=== PATIENT | male | born 1965 | race Caucasian/White ===

== ENCOUNTER 2016-05-08 09:46 | Day surgery (SDC) | payer OTHER ==
[2016-05-08] MEDS ORDERED: NS 1,000 ML IV ONE (09:50)
[2016-05-08] MEDS ORDERED: diphenhydrAMINE 25 MG CAP PO ONE ×2 (09:50→10:35)
[2016-05-08] MEDS ORDERED: DIAZEPAM 5 MG TAB PO ONE (09:50)
[2016-05-08] MEDS ORDERED: ASPIRIN EC 325 MG TAB PO ONE ×2 (09:50→10:35)
[2016-05-08] MEDS ORDERED: FAMOTIDINE 20 MG TAB PO ONE (09:50)
--- NOTE | 2016-05-08 10:16 | CPEKG ---
Heart Rate: 81 RR Interval: 741 P-R Interval: 152 QRSD Interval: 100 QT Interval: 372 QTC Interval: 432 P [place]: 75 QRS [place]: 69 T Wave [place]: 64 EKG Severity - NORMAL ECG - EKG Impression: SINUS RHYTHM Electronically Signed By: Neel Haile 08-May-2016 13:07:08
[2016-05-08 10:33] LABS: % IMMATURE GRANULYOCYTES 0.4 % (0.0-1.1); ABSOLUTE IMMATURE GRANULOCYTES 0.02 10^3/uL (0.00-0.10); ADD DIFF? NO; ADD MORPH? NO; ADD SCAN? NO; ATYPICAL LYMPHOCYTE FLAG 20 (0-99); FRAGMENT RBC FLAG 0 (0-99); HEMATOCRIT 43.4 % (40.0-51.0); LEFT SHIFT FLG 0 (0-99); LIPEMIA HEMOLYSIS FLAG 90 (0-99); MEAN CELL HEMOGLOBIN 29.7 pg (27.9-34.1); MEAN CELL HEMOGLOBIN CONCENTR. 34.6 g/dL (32.4-36.7); MEAN CELL VOLUME 85.9 fL (81.5-99.8); MEAN PLATELET VOLUME 9.8 fL (8.7-11.7); PLATELET CLUMPS FLAG 0 (0-99); PLATELET COUNT 219 10^3/uL (150-400); RED BLOOD CELL COUNT 5.05 10^6/uL (4.40-6.38); RED CELL DISTRIBUTION WIDTH 12.5 % (11.5-15.2)
[2016-05-08] MEDS ORDERED: FAMOTIDINE 20 MG TAB ONE (10:35)
[2016-05-08] MEDS ORDERED: DIAZEPAM 5 MG TAB ONE (10:36)
[2016-05-08 10:42] LABS: INR 0.93 (0.83-1.16); PROTIME(PATIENT) 12.4 SEC (12.0-15.0)
[2016-05-08] MEDS ORDERED: LIDOCAINE 1% 30 ML SDV ONE (10:46)
[2016-05-08] MEDS ORDERED: VERAPAMIL 5 MG/2 ML VIAL ONE (10:46)
[2016-05-08] MEDS ORDERED: MIDAZOLAM 2 MG/2 ML VIAL ONE ×2 (10:46→11:56)
[2016-05-08] MEDS ORDERED: HEPARIN 10,000 UNIT/10 ML MDV ONE (10:46)
[2016-05-08] MEDS ORDERED: fentaNYL 100 MCG/2 ML INJ ONE ×2 (10:46→11:56)
[2016-05-08] MEDS ORDERED: IOPAMIDOL (ISOVUE 370) 100 ML BTL IV ONE (10:47)
[2016-05-08 10:56] LABS: ANION GAP 12 mEq/L (8-16); CALCIUM 9.5 mg/dL (8.5-10.4); CARBON DIOXIDE 23 mEq/l (22-31); CHLORIDE 107 mEq/L (97-110); CHOLESTEROL 135 mg/dL (140-220); CHOLESTEROL/HDL RATIO 2.65 RATIO (1.00-4.97); CREATININE 0.8 mg/dL (0.7-1.3); GLOMERULAR FILTRATION RATE > 60; GLUCOSE 104 mg/dL (70-100); HIGH DENSITY LIPOPROTEIN 51 mg/dL (40-65); LDL/HDL RATIO 1.43 RATIO (1.00-3.64); LOW DENSITY LIPOPROTEIN 73 mg/dL (80-100); MAGNESIUM 2.2 mg/dL (1.6-2.3); NON-HIGH DENSITY LIPOPROTEIN 84 mg/dL (90-129); POTASSIUM 4.5 mEq/L (3.5-5.2); SODIUM 142 mEq/L (134-144); TRIGLYCERIDE 56 mg/dL (40-150); VERY LOW DENSITY LIPOPROTEINS 11 mg/dL (8-25)
[2016-05-08] MEDS ORDERED: ACETAMINOPHEN 325 MG TAB PO ONE (13:00)
--- NOTE | 2016-05-08 13:14 | ECHO ---
[id number] + + [address] : : [place] [address] : : [phone] + + Adult Echocardiographic Report + -------+ :Name: AGUEDA SHEN SStudy Date: 05/08/2016 10:30 AM : : Hospital Admission Number: [id number] Locati on: [facility]: :: 1965 Gender: Male Height: 65 in : :Age: 50 yrs Race: WH Weight: 155 lb : :Reason For Study: Eval mitral regurgitation : : BSA: 1.8 meter s2 : + -------+ MMode/2D Measurements \T\ Calculations IVSd: 0.82 cm LVIDd: 5.0 cm FS: 21.8 % MV Diam: 3.0 cm LVPWd: 0.84 cm LVIDs: 3.9 cm EDV(Teich): 119.2 ml ESV(Teich): 66.9 ml EF(Teich): 43.8 % Ao root diam: LVOT diam: 2.2 cmLVLd ap4: 8.7 cm SV(MOD-sp4): 3.6 cm LVOT area: EDV(MOD-sp4): 31.0 ml LA dimension: 3.8 cm2 55.0 ml 3.1 cm LVLs ap4: 7.2 cm ESV(MOD-sp4): 24.0 ml EF(MOD-sp4): 56.4 % Normal Measurement Values: + + :LVIDd (3.5-5.7cm) IVSd (0.6-1.1cm) LVPWd (0.6-1.1cm) Aortic Root (2.0-3.7cm)Left Atrium (1.5-4.0cm): :LV Vol(d) (76-115ml) LV Vol(s) (29-48ml) Ejec Fraction (50-65%)PV Paulie (0.6- 1.2m/s) TV Paulie (0.4-1.0m/s) : :MV E Paulie (0.8-1.0m/s)MV A Paulie (0.3-1.0m/s)LVOT Paulie (0.7-1.2m/s) Asc Ao Paulie ( 0.9-1.8m/s) : + + Doppler Measurements \T\ Calculations MV V2 max: Ao mean PG: LV V1 mean PG: MR max paulie: 101.8 cm/sec 2.4 mmHg 1.5 mmHg 589.8 cm/sec MV max P.1 mmHg Ao V2 mean: LV V1 mean: MR max PG: MV V2 mean: 72.3 cm/sec 56.5 cm/sec 139.2 mmHg 65.7 cm/sec Ao V2 VTI: 21.4 cm LV V1 VTI: 15.7 cm MV mean P.9 mmHgAVA(I,D): 2.8 cm2 MV V2 VTI: 31.9 cm MV area (1 diam): 7.2 cm2 MVA(VTI): 1.9 cm2 MV Flow area(1diam): 7.2 cm2 MR(RF 1 diam): SV(MV 1 diam): RF(MV,Ao)(1 diam): 14.3 % 228.4 ml 0.03 SI(MV 1 diam): RF(MV,LVOT) 128.7 ml/m2 (1diam): 0.74 SV(LVOT): 60.3 ml Left Ventricle The left ventricle is normal in size. There is normal left ventricular wall thickness. Left ventricular systolic function is normal. Ejection Fraction = 55-60%. LV basal inferoseptal and basal inferior olson are akinetic. All remaining LV segments have normal motion. Right Ventricle The right ventricle is normal in size and function. Atria The left atrial size is normal. Right atrial size is normal. The interatrial septum is intact with no evidence for an atrial septal defect. Mitral Valve Prolapse of the posterior mitral leaflet(s). There is no mitral valve stenosis. There is moderate to severe mitral regurgitation. Tricuspid Valve Normal tricuspid valve. There is trace tricuspid regurgitation. Aortic Valve The aortic valve is trileaflet. The aortic valve opens well. There is no aortic stenosis. There is no aortic insufficiency. Pulmonic Valve The pulmonic valve is normal in structure and function. There is no pulmonic valvular regurgitation. Great Vessels The aortic root is normal size. Pericardium/Pleural There is no pericardial effusion. Conclusion A complete two-dimensional transthoracic echocardiogram was performed (2D, M-mode, Doppler and color flow Doppler). Left ventricular systolic function is normal. Ejection Fraction = 55 to 60%. LV basal inferoseptal and basal inferior olson are akinetic. All remaining LV segments have normal motion. Prolapse of the posterior mitral leaflet. There is moderate to severe mitral regurgitation. Other valves with normal appearance. There is trace tricuspid regurgitation. Final Reading Physician: Bryce Duggan signed on 05/08/2016 01:12 PM Ordering Physician: Cristopher Madsen Performed By: Cara Ocasio RDCS
--- NOTE | 2016-05-08 13:51 | PDDXCAT ---
Diagnostic Cath Note - . Date: 05/08/16 Utilities Service Investigator: Cale Indication: CCC Class III and IV angina on medical treatment - Procedure Access: right wrist Procedure: left heart catheterization, coronary angiography, left ventriculogram - Materials Left Heart Cath size: 5F Left Heart Cath materials: other (TIG and Pigtail) - Findings-Left Heart Catheterization LM: Normal. LAD: Mid-LAD 60%; o/w mild irregularities; Diagonal-1 with tandem 60% and 70-80 % proximal lesions. LCX: Proximal stented segment has 80% restenosis; o/w mild irregularities. RCA: Proximal 50 to 60%; mid to distal vessel has diffuse disease and ectatic changes without high grade stenoses. EDP: 27 mmHg LVEF: 55 to 60% Wall motion: Mild inferobasilar hypokinesis. Estimated blood loss: <50ml Closure method: TR Band Assessment: 1) Preserved LV systolic function. 2) Multivessel CAD as described above. Plan: Referral to CT surgery.
== END 2016-05-08 16:26 | disposition home or self-care (01) ==
LOC: FCATH 09:46
PROVIDERS: ATTEND Internal Medicine Interventional Cardiology
PROC: B2111ZZ Fluoroscopy of Multiple Coronary Arteries using Low Osmolar Contrast (ICD-10-PCS; principal; 2016-05-08)
PROC: B246ZZZ Ultrasonography of Right and Left Heart (ICD-10-PCS; principal; 2016-05-08)
PROC: B2151ZZ Fluoroscopy of Left Heart using Low Osmolar Contrast (ICD-10-PCS; principal; 2016-05-08)
PROC: 4A023N7 Measurement of Cardiac Sampling and Pressure, Left Heart, Percutaneous Approach (ICD-10-PCS; principal; 2016-05-08)
DX: I25.119 Atherosclerotic heart disease of native coronary artery with unspecified angina pectoris (principal); T82.855A Stenosis of coronary artery stent, initial encounter; I34.0 Nonrheumatic mitral (valve) insufficiency; R53.83 Other fatigue; R06.09 Other forms of dyspnea; E78.5 Hyperlipidemia, unspecified; I25.2 Old myocardial infarction
CPT/HCPCS: 93005; 93306; 93458; C1769; J1644; J2250; J3010; Q9967

== ENCOUNTER 2016-06-04 07:25 | Inpatient (IN) | payer BC, OTHER ==
[2016-06-01 15:22] LABS: HEMOGLOBIN A1C 5.4 % (4.0-6.0)
[~2016-06-04 07:25] MED LIST: ADENOSINE 6 MG/2 ML VIAL ONE; ALBUMIN 5% 250 ML BOTTLE IV ONE; AMINOCAPROIC ACID 5 GM/20 ML VIAL IV ONE; AMINOCAPROIC ACID 5 GM/20 ML VIAL ONE; AMIODARONE HCL 150 MG/3 ML VIAL ONE; CALCIUM CHLORIDE 1 GM/10 ML INJ ONE; CITRATE DEXTROSE SOLN 500 ML BAG MISC ONE; CITRATE DEXTROSE SOLN 500 ML BAG ONE; DOPamine/DEXTROSE/250 ML BAG IV ONE; HEPARIN 10,000 UNIT/10 ML MDV ONE; INSULIN REGULAR HUMAN 100 UNIT in NS 100 ML IV ONE; LIDOCAINE 1% 5 ML SDV ID PRN; LIDOCAINE 2% 100 MG/5 ML SYR ONE; MAGNESIUM SULFATE 1 GM/2 ML VIAL ONE; MANNITOL 25% 12.5 GM/50 ML VIAL IV ONE; MILRINONE/DEXTROSE/100 ML BAG IV ONE; MUPIROCIN 2% 22 GM OINT NS ONE; NA BICARBONATE 50 MEQ/50 ML VIAL ONE; NOREPINEPHRINE BITARTRATE 16 MG in NS 250 ML IV ONE; NS 1,000 ML IV ONE; PHENYLEPHRINE HCL 50 MG in NS 250 ML IV ONE; POTASSIUM Cl (KCl) 20 MEQ/50 ML BAG IV ONE; PROTAMINE SULFATE 50 MG/5 ML VIAL IVP ONE; SODIUM BICARBONATE 20 MEQ, LIDOCAINE 1% 10 ML in NORMOSOL-R 1,000 ML MISC ONE; VERAPAMIL 5 MG, NITROGLYCERIN 2.5 MG, HEPARIN 500 UNIT, SODIUM BICARBONATE 0.2 MEQ in L... MISC ONE; ceFAZolin 1 GM VIAL ONE; ceFAZolin 2 GM/DEXTROSE 100 ML IV ONE; methylPREDNISolone SOD SUCC 1 GM/8 ML VIAL ONE; niCARdipine/NACL 200 ML IV ONE; niCARdipine/NACL/200 ML BAG IV ONE
[2016-06-04] MEDS ORDERED: PAPAVERINE HCL 60 MG/2 ML SDV ONE (07:50)
[2016-06-04] MEDS ORDERED: MINERAL OIL 10 ML VIAL TP ONE (07:50)
[2016-06-04] MEDS ORDERED: VERAPAMIL 5 MG/2 ML VIAL ONE (07:51)
[2016-06-04] MEDS ORDERED: PHENYLEPHRINE 10 MG/ML SDV ONE ×2 (07:58)
[2016-06-04] MEDS ORDERED: ROCURONIUM 100 MG/10 ML VIAL ONE (07:58)
[2016-06-04] MEDS ORDERED: LIDOCAINE 2% 5 ML SDV ONE (07:58)
[2016-06-04] MEDS ORDERED: PROPOFOL 200 MG/20 ML VIAL ONE (08:05)
[2016-06-04] MEDS ORDERED: fentaNYL 250 MCG/5 ML INJ ONE ×3 (08:05→12:57)
[2016-06-04] MEDS ORDERED: MIDAZOLAM 2 MG/2 ML VIAL ONE ×2 (08:37→14:43)
[2016-06-04] MEDS ORDERED: ESMOLOL HCL 100 MG/10 ML VIAL IV ONE (12:57)
[2016-06-04] MEDS ORDERED: MAGNESIUM SULF 2 GM/WATER 50 ML BAG IV ONE (13:48)
[2016-06-04] MEDS ORDERED: SUGAMMADEX SODIUM 200 MG/2 ML VIAL IVP ONE (14:05)
[2016-06-04] MEDS ORDERED: MAGNESIUM SULF 2 GM/WATER 50 ML IV ONE (14:14)
[2016-06-04] MEDS ORDERED: PANTOPRAZOLE SODIUM 40 MG in NS 100 ML IV ONE (14:14)
[2016-06-04] MEDS ORDERED: MAGNESIUM HYDROXIDE 30 ML UDCUP PO PRN (14:14)
[2016-06-04] MEDS ORDERED: CEPACOL LOZENGE PO PRN (14:14)
[2016-06-04] MEDS ORDERED: ONDANSETRON DISINTEGRATING 4 MG TAB PO PRN (14:14)
[2016-06-04] MEDS ORDERED: BISACODYL 10 MG SUPP PR PRN (14:14)
[2016-06-04] MEDS ORDERED: ONDANSETRON 4 MG/2 ML VIAL IVP PRN (14:14)
[2016-06-04] MEDS ORDERED: POLYETHYLENE GLYCOL 3350 17 GM PKT PO PRN (14:14)
[2016-06-04] MEDS ORDERED: MEPERIDINE 25 MG/ML SYR IVP PRN (14:14)
[2016-06-04] MEDS ORDERED: METOCLOPRAMIDE 10 MG/2 ML VIAL IVP PRN (14:14)
[2016-06-04] MEDS ORDERED: LACTULOSE 20 GM/30 ML UDCUP PO PRN (14:14)
[2016-06-04] MEDS ORDERED: D50W 25 GM/50 ML SYR IVP PRN (14:14)
[2016-06-04] MEDS ORDERED: SODIUM CL NASAL 45 ML BTL EACHNARE PRN (14:14)
[2016-06-04] MEDS ORDERED: ACETAMINOPHEN 650 MG SUPP PR PRN (14:14)
[2016-06-04] MEDS ORDERED: NS 1,000 ML IV SCH (14:15)
[2016-06-04] MEDS ORDERED: INSULIN REGULAR HUMAN 100 UNIT in NS 100 ML IV SCH (14:30)
--- NOTE | 2016-06-04 14:46 | POSTOPPROG ---
Post Op Note Date of Operation: 06/04/16 Surgeon: Cristopher Loco Sales And Customer Relations Rep: Shantanu Anesthesiologist: Randolph Anesthesia: GET(General Endotracheal) Pre-op Diagnosis: ASHD, MR Procedure: comples Mitral repair #28 physio, CAB 4 Becerra-Lad, Frima-Dg, svg-Lcx, RCA, At Inf/Abcess present in the surg proc area at time of surgery?: No EBL: 100-500 Drains: Other (3 blakes)
--- NOTE | 2016-06-04 15:23 | CPEKG ---
Heart Rate: 113 RR Interval: 531 P-R Interval: 156 QRSD Interval: 112 QT Interval: 360 QTC Interval: 494 P [place]: 77 QRS [place]: 53 T Wave [place]: 79 EKG Severity - ABNORMAL ECG - EKG Impression: SINUS TACHYCARDIA EKG Impression: INCOMPLETE RIGHT BUNDLE BRANCH BLOCK EKG Impression: LOW VOLTAGE IN FRONTAL LEADS Electronically Signed By: Neel Haile 05-Jun-2016 13:00:43
[2016-06-04 15:38] LABS: CALCULATED OXYGEN SATURATION 99 % (92-95)
--- NOTE | 2016-06-04 15:40 | GCON ---
[f rep st] CONSULTATION MOLD FINISHER CONSULTATION The patient is examined postoperatively after receiving a coronary bypass graft. HISTORY OF PRESENT ILLNESS: The patient is a 50-year-old white male with a past medical history of coronary artery disease, mitral regurgitation. He has had coronary artery stents, hyperlipidemia, a nd myocardial infarction. He is examined postoperatively after receiving a coronary bypass graft. Patient is currently sedated and was recently reintubated. All history is gleaned from the medical record. Over the last year, apparently he has been having worsening breathlessness, dizziness, and fatigue. PAST MEDICAL HISTORY: Significant for coronary artery disease, myocardial infarction, hypercholeste rolemia. PAST SURGICAL HISTORY: Coronary artery stent. ALLERGIES: Penicillin. PHYSICAL EXAM: VITAL SIGNS: Blood pressure is 112/61. Pulse is 103. Respirations 16. He is afeb rile. Oxygen saturation 100% on mechanical ventilation. GENERAL: He is a well-developed, well-nou rished 50-year-old white male who is resting comfortably on mechanical ventilation. HEENT: Eyes: SUASN. EOMI. Throat: Endotracheal tube is in good position. NECK: Supple. No cervical adenopath y. CHEST: Sternal wound is present. HEART: Regular rate and rhythm with a 2/6 systolic murmur at the left sternal border without radiation. LUNGS: Diminished breath sounds but no wheeze. ABDOME N: Soft, nontender. Bowel sounds are present. EXTREMITIES: No clubbing, cyanosis, or edema. LABORATORY STUDIES: Hemoglobin A1c is 5.4. All other labs are currently pending. IMPRESSION: 1. Coronary artery disease. 2. Status post coronary artery bypass graft. 3. Acute respiratory failure. 4. Hyperlipidemia. 5. Mitral regurgitation. RECOMMENDATIONS: 1. Wean from mechanical ventilation as tolerated. 2. DVT and PE prophylaxis. Holding anticoagulation for now. 3. Stress ulcer prophylaxis. 4. Adequate pain control. 5. Early ambulation. /[id number]/MODL
[2016-06-04] MEDS: ALBUMIN 5% 250 ML IV PRN ×2 (15:41→18:40)
[2016-06-04] MEDS ORDERED: VECURONIUM BROMIDE 10 MG VIAL ONE (15:49)
[2016-06-04] MEDS ORDERED: niCARdipine/NACL/200 ML BAG IV ONE (15:49)
[2016-06-04] MEDS: POTASSIUM Cl (KCl) 50 ML IV PRN ×2 (15:49→16:27)
--- NOTE | 2016-06-04 15:55 | GOP ---
[f rep st] OPERATIVE REPORT DATE OF OPERATION: 06/04/2016 SURGEON: Cristopher Loco DO MAT MAKER: Lesley Fournier, PAC. ANESTHESIOLOGIST: Theo Dickson MD. 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 POSTOPERATIVE DIAGNOSIS: Arteriosclerotic heart disease and severe mitral insufficiency with myxoma tous valve degeneration. PROCEDURE PERFORMED: 1. Coronary bypass grafting x4, with left internal mammary artery to left anterior descending, free right internal mammary artery to the diagonal with a proximal anastomosis brought off the eagle of t he vein graft to the circumflex. 2. Vein graft to the posterolateral circumflex. 3. Saphenous vein graft to the right coronary artery. 4. Complex mitral valve repair with P2 resection and valvuloplasty, reduction of A3 P3 commissure, and a #28 Physio annuloplasty ring. 5. AtriClip occlusion of left atrial appendage. 6. Endoscopic vein harvest. FINDINGS: The patient was noted to have severe 3-vessel disease, preserved LV function with severe mitral insufficiency secondary to myxomatous valve degeneration. DESCRIPTION OF PROCEDURE: He was consented for surgery, brought to the operating room, intubated. Monitoring lines were placed. He was prepped and draped in sterile classical manner. Left greater saphenous was harvested endoscopically by Lesley Fournier, who first assisted throughout the procedure, whi le simultaneous bilateral mammaries were harvested. The right internal mammary was small, but had b risk flow, and I did not believe it would be long enough to reach a distal circumflex vessel through the transverse sinus safely, due to multiple stents within that vessel. For that reason, it was ta cammie as a free graft and utilized as such. The patient was then heparinized, cannulated. Bypass was begun. A cardioplegic arrest was obtained with antegrade cardioplegia, retrograde cardioplegia, to pical hypothermia, and systemic cooling. Initially, all distal grafting was performed with a vein g raft to the circumflex, mammary to the LAD and the diagonal with a free right internal mammary broug ht off the eagle of the vein graft to the circumflex and a vein graft to the right coronary artery. I then proceeded with exposing the mitral valve through the right superior pulmonary vein. AtriClip was applied to the left atrial appendage. Exposing the mitral valve, it was a small valve with fib roelastic deficiency. There was elongation of the P2 and some annular dilatation. Annuloplasty sut ures were placed. Distention of the ventricle revealed prolapse of P2 but also A3 and P3. I did a triangular resection of P2, approximating it with 6-0 [place]ce. Distention of the ventricle reveale d some persistent annular regurgitation. By securing it with a 28 annuloplasty ring, that regurgita tion was eliminated. I did close the cleft between P2 and P3, and was satisfied. I then closed the left atrium after de-airing the patient in Trendelenburg, removed the crossclamp, restoring normal sinus rhythm. He was weaned from bypass without difficulty. Evaluation of the echo revealed some p ersistent 1 to 2+ mitral insufficiency at the lateral commissure. I then re-arrested the heart, re- opened the left atrium, and did a "magic stitch" vertical application to the commissure at A3 P3. D istention of the ventricle revealed no prolapse, regurgitation or any stenosis. I then re-closed th e atrium, removed the crossclamp, de-aired the patient again in the standard fashion, and weaned him from bypass. Echo revealed trace to none insufficiency with good coaptation and good ventricular f unction. The heparin was reversed with protamine. The cannula was removed and oversewn. 2 ventric ular pacing wires were placed. 2 pleural and 1 mediastinal drain were placed. The thymic fat and p ericardium were closed. Chest was closed in standard fashion. Patient was returned to ICU in stabl e condition. /[id number]/MODL
--- NOTE | 2016-06-04 16:04 | GPN ---
[f rep st] PROCEDURE NOTE PROCEDURE: Intubation. INDICATION: Respiratory failure. DESCRIPTION OF PROCEDURE: Via GlideScope, patient was intubated with a #7.5 endotracheal tube and t aped in at 24 cm at the lip. Tracheal position was confirmed via capnograph. Patient tolerated the procedure well. There were no apparent complications. Portable chest x-ray has been called for. /[id number]/MODL
[2016-06-04] MEDS: fentaNYL 100 MCG/2 ML INJ IVP PRN (16:30)
[2016-06-04] MEDS: SENNOSIDES/DOCUSATE SODIUM TAB PO SCH (20:14)
[2016-06-04] MEDS: MUPIROCIN 2% 22 GM OINT NS SCH (20:53)
[2016-06-04] MEDS: ceFAZolin 2 GM/DEXTROSE 100 ML IV SCH (21:34)
[2016-06-04 23:11] LABS: CALCULATED OXYGEN SATURATION 99 % (92-95)
[2016-06-05] MEDS: fentaNYL 100 MCG/2 ML INJ IVP PRN ×4 (00:09→05:17)
[2016-06-05 03:53] LABS: HEMOGLOBIN 10.6 g/dL (13.7-17.5); MEAN CELL HEMOGLOBIN CONCENTR. 34.2 g/dL (32.4-36.7); MEAN CELL VOLUME 87.8 fL (81.5-99.8); RED BLOOD CELL COUNT 3.53 10^6/uL (4.40-6.38); RED CELL DISTRIBUTION WIDTH 13.2 % (11.5-15.2)
[2016-06-05 05:27] LABS: INR 1.27 (0.83-1.16); PROTIME(PATIENT) 15.9 SEC (12.0-15.0)
[2016-06-05] MEDS: HYDROCODONE/APAP 5/325 TAB PO PRN ×4 (05:27→19:27)
[2016-06-05] MEDS: ceFAZolin 2 GM/DEXTROSE 100 ML IV SCH ×4 (05:30→21:02)
[2016-06-05 05:33] LABS: ANION GAP 7 mEq/L (8-16); CALCIUM 8.5 mg/dL (8.5-10.4); CARBON DIOXIDE 23 mEq/l (22-31); CHLORIDE 113 mEq/L (97-110); CREATININE 0.6 mg/dL (0.7-1.3); GLOMERULAR FILTRATION RATE > 60; GLUCOSE 77 mg/dL (70-100); POTASSIUM 4.2 mEq/L (3.5-5.2); SODIUM 143 mEq/L (134-144)
[2016-06-05 05:54] LABS: % IMMATURE GRANULYOCYTES 0.5 % (0.0-1.1); ABSOLUTE IMMATURE GRANULOCYTES 0.04 10^3/uL (0.00-0.10); ADD DIFF? NO; ADD MORPH? NO; ADD SCAN? NO; ATYPICAL LYMPHOCYTE FLAG 0 (0-99); FRAGMENT RBC FLAG 0 (0-99); HEMATOCRIT 31.6 % (40.0-51.0); HEMOGLOBIN 10.6 g/dL (13.7-17.5); LEFT SHIFT FLG 40 (0-99); LIPEMIA HEMOLYSIS FLAG 80 (0-99); MEAN CELL HEMOGLOBIN 29.2 pg (27.9-34.1); MEAN CELL HEMOGLOBIN CONCENTR. 33.5 g/dL (32.4-36.7); MEAN CELL VOLUME 87.1 fL (81.5-99.8); MEAN PLATELET VOLUME 11.2 fL (8.7-11.7); PLATELET CLUMPS FLAG 10 (0-99); PLATELET COUNT 96 10^3/uL (150-400); RED BLOOD CELL COUNT 3.63 10^6/uL (4.40-6.38); RED CELL DISTRIBUTION WIDTH 13.2 % (11.5-15.2)
[2016-06-05] MEDS ORDERED: HEPARIN 5,000 UNIT/0.5 ML SYR SC SCH (06:00)
--- NOTE | 2016-06-05 08:20 | SOAPPROG ---
SOAP Progress Note Assessment/Plan: Assessment: POD#1 CABG x 4 (RODRIGUEZ-LAD, FRIMA-D2, SV-PLC, SV-RCA); complex MV rpr with P2 rsxn, A3-P3 reduction, and 28mm ring annuloplasty; prophylactic AtriClip LLAA; EVH left thigh Sx severe CAD w preserved LV systolic fx - s/p CABG with 2 arterial grafts. Extubated in the OR but transiently reintubated for agitation and acidosis. Successfully extubated last noc without further resp compromise. Stable hemodynamics without pressor support, backup pacing, blood, blood products. Minimal volume overload. Secondary prevention with ASA, BB uptitrated as tolerated, and statin when eating well. Myxomatous MR - Bileaflet involvement amenable to complex repair. Antithrombotic prophylaxis with Coumadin x 3 mo. Target INR 2-3. Acute expected blood loss anemia - Stable. No blood products transfused. VTE prophylaxis w coumadin. Plan: Routine POD#1 orders re lines, drains, wires, orals and mobility. Add duragesic patch 50mcg. Start metoprolol 12.5 mg BID. Start coumadin. 2.5 mg today. Tx to PCU. 06/05/16 08:15 Subjective: Ok at rest. Suboptimal analgesia with mvmt. Objective: Vital Signs Temp Pulse Resp BP Pulse Ox 38.0 C 93 12 121/67 H 97 06/05/16 07:00 06/05/16 08:00 06/05/16 08:00 06/05/16 08:00 06/05/16 08:00 Laboratory Results 06/05/16 03:25 06/05/16 05:10 06/04/16 06/05/16 06/06/16 05:59 05:59 05:59 Intake Total 1827 Output Total 2185 180 Balance -358 -180 PT 15.9 SEC (12.0-15.0) H 06/05/16 05:10 INR 1.27 (0.83-1.16) H 06/05/16 05:[address], BP sl elev - likely secondary to pain. Minimal suppl O2 req. CXR-> No PTX, no undrained effusions, no pulm vasc congestion, abundant GI gas. Balanced I/Os. Labs ok. Physical Exam - Physical Exam General Appearance: alert, no apparent distress Respiratory: crackles (+ tube noise), other (Blakes x 3 y-d to pleurovac, serosang drainage, no tidal, no AL) Cardiac/Chest: regular rate, rhythm, tachycardia Abdomen: normal bowel sounds, non-tender, soft Skin: warm/dry Extremities: other (no visible edema) ICD10 Worksheet Patient Problems: Problems Problem Status Onset Acute blood loss anemia Acute Coronary stent restenosis Acute Crescendo angina Acute S/P CABG x 4 Acute ~06/04/16 S/P mitral valve repair Acute ~06/04/16 CAD, multiple vessel Chronic Myxomatous mitral valve regurgitation Chronic
[2016-06-05] MEDS ORDERED: fentaNYL 50 MCG PATCH TD ONE (08:30)
--- NOTE | 2016-06-05 08:51 | PDINTPN ---
Nutritionist Progress Note Assessment/Plan: Assessment/Plan: * Status post CABG with mitral valve repair-stable * Respiratory-stable off mechanical ventilation -continue aggressive pulmonary toilet * Coronary artery disease * Pain-fairly well controlled * Anemia * VTE prophylaxis-Coumadin to start today * Stress ulcer prophylaxis * PT/OT * Out of bed to chair Subjective: Complains of pain with deep inspiration or cough. He states he is only able to take a shallow breath. Objective: Vital Signs Temp Pulse Resp BP Pulse Ox 38.0 C 93 12 121/67 H 97 06/05/16 07:00 06/05/16 08:00 06/05/16 08:00 06/05/16 08:00 06/05/16 08:00 Laboratory Results 06/05/16 03:25 06/05/16 05:10 06/04/16 06/05/16 06/06/16 05:59 05:59 05:59 Intake Total 1827 Output Total 2185 180 Balance -358 -180 PT 15.9 SEC (12.0-15.0) H 06/05/16 05:10 INR 1.27 (0.83-1.16) H 06/05/16 05:10 Physical Exam - Physical Exam General Appearance: alert, mild distress EENT: PERRL/EOMI, normal ENT inspection, pharynx normal, TMs normal Neck: non-tender, full range of motion, supple, normal inspection Respiratory: crackles (Few basilar), No respiratory distress, No stridor, No wheezing Cardiac/Chest: normal peripheral pulses, regular rate, rhythm Peripheral Pulses: 2+: carotid (R), carotid (L), femoral (R), femoral (L), dorsalis-pedis (R), dorsalis-pedis (L) Abdomen: normal bowel sounds, non-tender, soft Male Genitalia: deferred Rectal: deferred Skin: normal color, warm/dry Lymphatic: no adenopathy Neuro/Psych: no motor/sensory deficits, alert, normal mood/affect, oriented x 3 ICD10 Worksheet Patient Problems: Problems Problem Status Onset Acute blood loss anemia Acute Coronary stent restenosis Acute Crescendo angina Acute S/P CABG x 4 Acute ~06/04/16 S/P mitral valve repair Acute ~06/04/16 CAD, multiple vessel Chronic Myxomatous mitral valve regurgitation Chronic
[2016-06-05] MEDS ORDERED: ASPIRIN 81 MG CHEWABLE TAB TUBE PRN (09:00)
[2016-06-05] MEDS: SENNOSIDES/DOCUSATE SODIUM TAB PO SCH ×2 (09:07→20:59)
[2016-06-05] MEDS: METOPROLOL TARTRATE 25 MG TAB PO SCH ×2 (09:07→21:05)
[2016-06-05] MEDS: ASPIRIN 81 MG CHEWABLE TAB PO SCH (09:09)
[2016-06-05] MEDS: PANTOPRAZOLE SODIUM 40 MG TAB PO SCH (09:09)
[2016-06-05] MEDS: MUPIROCIN 2% 22 GM OINT NS SCH ×2 (09:13→21:04)
[2016-06-05] MEDS ORDERED: KETOROLAC 30 MG/1 ML SDV IVP ONE (10:48)
[2016-06-05] MEDS ORDERED: ALBUMIN 5% 250 ML IV ONE (13:10)
[2016-06-05] MEDS ORDERED: NS BOLUS 500 ML (Wide open) IV ONE (16:00)
[2016-06-05] MEDS ORDERED: WARFARIN SODIUM 2.5 MG TAB PO ONE (16:00)
[2016-06-06] MEDS: HYDROCODONE/APAP 5/325 TAB PO PRN (02:44)
[2016-06-06 03:17] LABS: ANION GAP 9 mEq/L (8-16); CALCIUM 8.6 mg/dL (8.5-10.4); CARBON DIOXIDE 24 mEq/l (22-31); CHLORIDE 103 mEq/L (97-110); CREATININE 0.8 mg/dL (0.7-1.3); GLOMERULAR FILTRATION RATE > 60; GLUCOSE 138 mg/dL (70-100); POTASSIUM 4.2 mEq/L (3.5-5.2); SODIUM 136 mEq/L (134-144)
[2016-06-06 03:30] LABS: % IMMATURE GRANULYOCYTES 0.7 % (0.0-1.1); ADD DIFF? NO; ADD MORPH? NO; ADD SCAN? NO; ATYPICAL LYMPHOCYTE FLAG 0 (0-99); FRAGMENT RBC FLAG 0 (0-99); HEMATOCRIT 30.7 % (40.0-51.0); HEMOGLOBIN 10.2 g/dL (13.7-17.5); LEFT SHIFT FLG 10 (0-99); LIPEMIA HEMOLYSIS FLAG 80 (0-99); MEAN CELL HEMOGLOBIN 29.7 pg (27.9-34.1); MEAN CELL HEMOGLOBIN CONCENTR. 33.2 g/dL (32.4-36.7); MEAN CELL VOLUME 89.5 fL (81.5-99.8); MEAN PLATELET VOLUME 11.7 fL (8.7-11.7); PLATELET CLUMPS FLAG 0 (0-99); PLATELET COUNT 95 10^3/uL (150-400); RED BLOOD CELL COUNT 3.43 10^6/uL (4.40-6.38); RED CELL DISTRIBUTION WIDTH 13.4 % (11.5-15.2)
[2016-06-06 03:35] LABS: INR 1.81 (0.83-1.16); PROTIME(PATIENT) 21.1 SEC (12.0-15.0)
[2016-06-06] MEDS: ceFAZolin 2 GM/DEXTROSE 100 ML IV SCH ×2 (06:14→14:35)
--- NOTE | 2016-06-06 07:48 | SOAPPROG ---
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 Target INR 2-3. Acute expected blood loss anemia - Stable. No blood products transfused Disposition - Home Wednesday without services Subjective: c/o of pain near CTs, denies SOB, feels like he's doing well Objective: Vital Signs Temp Pulse Resp BP Pulse Ox 36.8 C 108 H 19 125/70 H 94 06/05/16 16:00 06/06/16 05:28 06/06/16 05:28 06/06/16 05:28 06/06/16 05:28 Laboratory Results 06/06/16 02:55 06/06/16 02:55 06/05/16 06/06/16 06/07/16 05:59 05:59 05:59 Intake Total 1827 2450 Output Total 2185 1225 Balance -358 1225 PT 21.1 SEC (12.0-15.0) H 06/06/16 02:55 INR 1.81 (0.83-1.16) H 06/06/16 02:55 Physical Exam - Physical Exam General Appearance: alert, mild distress EENT: normal ENT inspection Neck: normal inspection Respiratory: respiratory distress (mild), splinting, pain on movement, No accessory muscle use, No retractions Cardiac/Chest: regular rate, rhythm Abdomen: non-tender, soft, No distended Skin: normal color, warm/dry Extremities: No pedal edema Neuro/Psych: no motor/sensory deficits, alert, normal mood/affect, oriented x 3 ICD10 Worksheet Patient Problems: Problems Problem Status Onset Acute blood loss anemia Acute Coronary stent restenosis Acute Crescendo angina Acute S/P CABG x 4 Acute ~06/04/16 S/P mitral valve repair Acute ~06/04/16 CAD, multiple vessel Chronic Myxomatous mitral valve regurgitation Chronic
[2016-06-06] MEDS: oxyCODONE IR 5 MG TAB PO PRN (08:15)
[2016-06-06] MEDS: ASPIRIN 81 MG CHEWABLE TAB PO SCH (08:18)
[2016-06-06] MEDS: MAGNESIUM OXIDE 400 MG TAB PO SCH (08:18)
[2016-06-06] MEDS: SENNOSIDES/DOCUSATE SODIUM TAB PO SCH ×2 (08:18→20:19)
[2016-06-06] MEDS: PANTOPRAZOLE SODIUM 40 MG TAB PO SCH (08:19)
[2016-06-06] MEDS: METOPROLOL TARTRATE 25 MG TAB PO SCH ×2 (08:19→21:37)
[2016-06-06] MEDS: MUPIROCIN 2% 22 GM OINT NS SCH (08:25)
[2016-06-06] MEDS: CALCIUM CARBONATE PO SCH ×2 (09:22→12:05)
[2016-06-06] MEDS: VITAMIN D3 PO SCH ×2 (09:22→12:05)
[2016-06-06] MEDS ORDERED: KETOROLAC 30 MG/1 ML SDV IVP ONE (10:04)
--- NOTE | 2016-06-06 10:32 | ECHO ---
[id number] [id number] + + [address] : : [facility] [address] : : [phone] + + Adult Echocardiographic Report + -------+ :Name: AGUEDA SHEN SStudy Date: 06/06/2016 07:40 AM : : Hospital Admission Number: [id number] Locati on: 213: :: 1965 Gender: Male Height: 65 in : :Age: 50 yrs Race: WH Weight: 154 lb : :Reason For Study: Post mitral valve repair : : BSA: 1.8 meter s2 : + -------+ Left Ventricle The left ventricle is hyperdynamic. Mitral Valve No MR visualized. An annuloplasty ring is noted in the mitral position. Pericardium/Pleural trivial pericardial effusion. Conclusion Limited 2-D echo. The study was technically limited. The left ventricle is hyperdynamic. An annuloplasty ring is noted in the mitral position. No MR visualized. trivial pericardial effusion. Final Reading Physician: Bryce Bruce signed on 06/06/2016 10:30 AM Ordering Physician: Cristopher Loco Performed By: Cara Ocasio, ARNALDO
[2016-06-06] MEDS ORDERED: NS 500 ML IV SCH (12:00)
[2016-06-06] MEDS ORDERED: WARFARIN SODIUM 2.5 MG TAB PO ONE (16:00)
[2016-06-06] MEDS ORDERED: WARFARIN SODIUM 1 MG TAB PO ONE (16:00)
[2016-06-06] MEDS: ACETAMINOPHEN 325 MG TAB PO PRN (16:22)
[2016-06-07] MEDS: ACETAMINOPHEN 325 MG TAB PO PRN (04:44)
[2016-06-07] MEDS: HYDROCODONE/APAP 5/325 TAB PO PRN (04:44)
[2016-06-07 04:53] LABS: INR 3.08 (0.83-1.16); PROTIME(PATIENT) 32.2 SEC (12.0-15.0)
--- NOTE | 2016-06-07 08:06 | SOAPPROG ---
SOAP Progress Note Assessment/Plan: POD#3 CABG x 4 (RODRIGUEZ-LAD, FRIMA-D2, SV-PLC, SV-RCA); complex MV rpr with P2 rsxn , A3-P3 reduction, and 28mm ring annuloplasty; prophylactic AtriClip LLAA; EVH left thigh Sx severe CAD w preserved LV systolic fx - s/p CABG x4 - Secondary prevention with ASA, BB uptitrated as tolerated, and statin when eating well - PT for ambulation - SCDs for DVT prophylaxis Myxomatous MR - Bileaflet involvement amenable to complex repair, no MR as per post-op ECHO - Antithrombotic prophylaxis with Coumadin x 3 mo. Target INR 2-3. Acute expected blood loss anemia - Stable. No blood products transfused Disposition - Home Wednesday without services Subjective: Feels better. Denies pain/SOB. Objective: Vital Signs Temp Pulse Resp BP Pulse Ox 37.0 C 89 16 104/70 100 06/07/16 07:35 06/07/16 07:35 06/07/16 07:35 06/07/16 07:35 06/07/16 07:35 Laboratory Results 06/06/16 02:55 06/06/16 02:55 06/06/16 06/07/16 06/08/16 05:59 05:59 05:59 Intake Total 2450 1730 Output Total 1225 1250 Balance 1225 480 PT 32.2 SEC (12.0-15.0) H D 06/07/16 04:40 INR 3.08 (0.83-1.16) H 06/07/16 04:40 Physical Exam - Physical Exam General Appearance: WD/WN, alert, no apparent distress EENT: normal ENT inspection Neck: normal inspection Respiratory: No respiratory distress Cardiac/Chest: regular rate, rhythm Abdomen: non-tender, soft, No distended Skin: normal color, warm/dry Extremities: pedal edema Neuro/Psych: no motor/sensory deficits, alert, normal mood/affect, oriented x 3 ICD10 Worksheet Patient Problems: Problems Problem Status Onset Acute blood loss anemia Acute Coronary stent restenosis Acute Crescendo angina Acute S/P CABG x 4 Acute ~06/04/16 S/P mitral valve repair Acute ~06/04/16 CAD, multiple vessel Chronic Myxomatous mitral valve regurgitation Chronic
[2016-06-07] MEDS ORDERED: KETOROLAC 30 MG/1 ML SDV IVP ONE (10:16)
[2016-06-07] MEDS: FUROSEMIDE 40 MG TAB PO SCH ×2 (10:41→15:32)
[2016-06-07] MEDS: POTASSIUM CL 20 MEQ TAB PO SCH ×2 (10:41→21:28)
[2016-06-07] MEDS: ROSUVASTATIN CALCIUM 20 MG TAB PO SCH (10:42)
[2016-06-07] MEDS: METOPROLOL TARTRATE 25 MG TAB PO SCH ×2 (10:42→21:28)
[2016-06-07] MEDS: PANTOPRAZOLE SODIUM 40 MG TAB PO SCH (10:43)
[2016-06-07] MEDS: ASPIRIN 81 MG CHEWABLE TAB PO SCH (10:43)
[2016-06-07] MEDS: OMEGA-3 FATTY ACIDS 1,000 MG CAP PO SCH (10:43)
[2016-06-07] MEDS: SENNOSIDES/DOCUSATE SODIUM TAB PO SCH ×2 (10:44→21:31)
[2016-06-07] MEDS: CALCIUM CARBONATE PO SCH (10:54)
[2016-06-07] MEDS: VITAMIN D3 PO SCH (10:54)
[2016-06-08 03:33] LABS: ANION GAP 7 mEq/L (8-16); CALCIUM 7.3 mg/dL (8.5-10.4); CARBON DIOXIDE 24 mEq/l (22-31); CHLORIDE 105 mEq/L (97-110); CREATININE 0.6 mg/dL (0.7-1.3); GLOMERULAR FILTRATION RATE > 60; GLUCOSE 106 mg/dL (70-100); POTASSIUM 3.3 mEq/L (3.5-5.2); SODIUM 136 mEq/L (134-144)
[2016-06-08 03:34] LABS: INR 2.16 (0.83-1.16); PROTIME(PATIENT) 24.3 SEC (12.0-15.0)
--- NOTE | 2016-06-08 07:02 | SOAPPROG ---
SOAP Progress Note Assessment/Plan: POD#3 CABG x 4 (RODRIGUEZ-LAD, FRIMA-D2, SV-PLC, SV-RCA); complex MV rpr with P2 rsxn , A3-P3 reduction, and 28mm ring annuloplasty; prophylactic AtriClip LLAA; EVH left thigh Sx severe CAD w preserved LV systolic fx - s/p CABG x4 - Secondary prevention with ASA, BB, and statin - PT for ambulation - SCDs/Coumadin for DVT prophylaxis Myxomatous MR - Bileaflet involvement amenable to complex repair, no MR as per post-op ECHO - Antithrombotic prophylaxis with Coumadin x 3 mo. Target INR 2-3. Acute expected blood loss anemia - Stable. No blood products transfused Disposition - Home Wednesday without services Subjective: Pain better today. Able to take deeper breaths. Objective: Vital Signs Temp Pulse Resp BP Pulse Ox 37.3 C 93 18 115/75 91 L 06/08/16 03:08 06/08/16 03:08 06/08/16 03:08 06/08/16 03:08 06/08/16 03:08 Laboratory Results 06/06/16 02:55 06/08/16 03:15 06/07/16 06/08/16 06/09/16 05:59 05:59 05:59 Intake Total 1730 920 Output Total 1250 2710 Balance 480 -1790 PT 24.3 SEC (12.0-15.0) H 06/08/16 03:15 INR 2.16 (0.83-1.16) H 06/08/16 03:15 Physical Exam - Physical Exam General Appearance: WD/WN, alert, no apparent distress EENT: normal ENT inspection Neck: normal inspection Respiratory: normal breath sounds, No respiratory distress Cardiac/Chest: regular rate, rhythm Abdomen: non-tender, soft, No distended Skin: normal color, warm/dry Extremities: pedal edema Neuro/Psych: no motor/sensory deficits, alert, normal mood/affect, oriented x 3 ICD10 Worksheet Patient Problems: Problems Problem Status Onset Acute blood loss anemia Acute Coronary stent restenosis Acute Crescendo angina Acute S/P CABG x 4 Acute ~06/04/16 S/P mitral valve repair Acute ~06/04/16 CAD, multiple vessel Chronic Myxomatous mitral valve regurgitation Chronic
[2016-06-08] MEDS ORDERED: fentaNYL 50 MCG PATCH TD ONE (07:51)
[2016-06-08] MEDS: POTASSIUM Cl (KCl) 50 ML IV SCH ×4 (08:01→18:36)
[2016-06-08] MEDS: POTASSIUM CL 20 MEQ TAB PO SCH ×2 (08:49→20:03)
[2016-06-08] MEDS: ROSUVASTATIN CALCIUM 20 MG TAB PO SCH (08:49)
[2016-06-08] MEDS: OMEGA-3 FATTY ACIDS 1,000 MG CAP PO SCH (08:50)
[2016-06-08] MEDS: FUROSEMIDE 40 MG TAB PO SCH ×2 (08:50→15:50)
[2016-06-08] MEDS: METOPROLOL TARTRATE 25 MG TAB PO SCH ×2 (08:50→20:03)
[2016-06-08] MEDS: PANTOPRAZOLE SODIUM 40 MG TAB PO SCH (08:51)
[2016-06-08] MEDS: ASPIRIN 81 MG CHEWABLE TAB PO SCH (08:51)
[2016-06-08] MEDS: SENNOSIDES/DOCUSATE SODIUM TAB PO SCH ×3 (08:52→20:02)
[2016-06-08] MEDS: ACETAMINOPHEN 325 MG TAB PO PRN ×2 (08:53→15:53)
[2016-06-08] MEDS: VITAMIN D3 PO SCH (10:26)
[2016-06-08] MEDS: CALCIUM CARBONATE PO SCH (10:26)
[2016-06-08 15:11] LABS: POTASSIUM 3.6 mEq/L (3.5-5.2)
[2016-06-08] MEDS ORDERED: WARFARIN SODIUM 2.5 MG TAB PO ONE (16:00)
[2016-06-08] MEDS ORDERED: WARFARIN SODIUM 1 MG TAB PO ONE (16:00)
[2016-06-09 06:34] LABS: INR 2.32 (0.83-1.16); PROTIME(PATIENT) 25.7 SEC (12.0-15.0)
[2016-06-09 06:43] LABS: POTASSIUM 4.4 mEq/L (3.5-5.2)
--- NOTE | 2016-06-09 08:15 | CPEKG ---
Heart Rate: 105 RR Interval: 571 P-R Interval: 124 QRSD Interval: 130 QT Interval: 372 QTC Interval: 492 P [place]: 75 QRS [place]: -1 T Wave [place]: 47 EKG Severity - ABNORMAL ECG - EKG Impression: SINUS TACHYCARDIA EKG Impression: RIGHT BUNDLE BRANCH BLOCK EKG Impression: RIGHT VENTRICULAR HYPERTROPHY Electronically Signed By: Neel Au 10-Jun-2016 08:24:25
[2016-06-09] MEDS: FUROSEMIDE 40 MG TAB PO SCH ×2 (09:00→15:28)
[2016-06-09] MEDS ORDERED: METOPROLOL TARTRATE 25 MG TAB PO SCH (09:00)
[2016-06-09] MEDS: MAGNESIUM OXIDE 400 MG TAB PO SCH (09:00)
[2016-06-09] MEDS: OMEGA-3 FATTY ACIDS 1,000 MG CAP PO SCH (09:00)
[2016-06-09] MEDS: POTASSIUM CL 20 MEQ TAB PO SCH (09:00)
[2016-06-09] MEDS: SENNOSIDES/DOCUSATE SODIUM TAB PO SCH (09:02)
[2016-06-09] MEDS: ROSUVASTATIN CALCIUM 20 MG TAB PO SCH (09:02)
[2016-06-09] MEDS: PANTOPRAZOLE SODIUM 40 MG TAB PO SCH (09:02)
[2016-06-09] MEDS: ASPIRIN 81 MG CHEWABLE TAB PO SCH (09:02)
[2016-06-09] MEDS: VITAMIN D3 PO SCH (09:03)
[2016-06-09] MEDS: CALCIUM CARBONATE PO SCH (09:03)
--- NOTE | 2016-06-09 09:04 | SOAPPROG ---
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 Target INR 2-3. Acute expected blood loss anemia - Stable. No blood products transfused Disposition - Home today without services 06/09/16 09:37 Subjective: Feels much better today. Denies SOB/CP. Objective: Vital Signs Temp Pulse Resp BP Pulse Ox 37.3 C 111 H 20 115/76 93 06/09/16 07:50 06/09/16 09:01 06/09/16 07:50 06/09/16 09:01 06/09/16 07:50 Laboratory Results 06/06/16 02:55 06/09/16 06:00 06/08/16 06/09/16 06/10/16 05:59 05:59 05:59 Intake Total 920 2095 Output Total 2710 0 Balance -1790 45 PT 25.7 SEC (12.0-15.0) H 06/09/16 06:00 INR 2.32 (0.83-1.16) H 06/09/16 06:00 Physical Exam - Physical Exam General Appearance: WD/WN, alert, no apparent distress EENT: normal ENT inspection Neck: normal inspection Respiratory: No respiratory distress Cardiac/Chest: regular rate, rhythm Abdomen: non-tender, soft, No distended Skin: normal color, warm/dry Extremities: pedal edema Neuro/Psych: no motor/sensory deficits, alert, normal mood/affect, oriented x 3 ICD10 Worksheet Patient Problems: Problems Problem Status Onset Acute blood loss anemia Acute Coronary stent restenosis Acute Crescendo angina Acute S/P CABG x 4 Acute ~06/04/16 S/P mitral valve repair Acute ~06/04/16 CAD, multiple vessel Chronic Myxomatous mitral valve regurgitation Chronic
[2016-06-09 09:19] LABS: HEMATOCRIT 25.4 % (40.0-51.0); HEMOGLOBIN 8.5 g/dL (13.7-17.5); MEAN CELL HEMOGLOBIN 29.4 pg (27.9-34.1); MEAN CELL HEMOGLOBIN CONCENTR. 33.5 g/dL (32.4-36.7); MEAN CELL VOLUME 87.9 fL (81.5-99.8); RED BLOOD CELL COUNT 2.89 10^6/uL (4.40-6.38); RED CELL DISTRIBUTION WIDTH 13.1 % (11.5-15.2)
[2016-06-09] MEDS ORDERED: FERROUS SULFATE 325 MG TAB PO SCH (10:00)
[2016-06-09 12:32] VITALS: BP 104/70; PULSE 89; RESP 19; TEMP 96.5; O2SAT 95
--- NOTE | 2016-06-09 14:18 | PDDCSUM ---
Discharge Summary Discharge Summary: ADMISSION DATE: 06/04/16 DISCHARGE DATE: 06/09/16 ADMISSION DX: 1. Severe three-vessel CAD 2. Severe mitral valve insufficiency DISCHARGE DX: 1. Severe three-vessel CAD 2. Severe mitral valve insufficiency PROCEDURES 06/04/16, Cristopher Loco: 1. CABGx4 (RODRIGUEZ-LAD, free JUDY-Diag, SVG-circ, SVG-RCA) 2. Complex MV repair with #28 Physio ring annuloplasty 3. AtriClip RAUL 4. [facility] COURSE BY PROBLEM LIST 1. Severe three-vessel CAD: s/p CABGx4 with stable post-operative course. Beta- rhonda, aspirin, and statin continued. 2. Severe mitral valve insufficiency: s/p complex repair with annuloplasty. Post -op ECHO revealed no valve insufficiency. Coumadin prescribed for 3 months with INR goal of 2-3. CONDITION Good DISPOSITION Home ACTIVITY Pt was instructed on sternal precautions, activity limitations, and which problems to call [facility] with. Please see Discharge Plan in chart for specifics. D/C MEDICATIONS 1. Aspirin [Aspirin 81mg (*)] 81 mg PO DAILY 2. Calcium Carbonate/Vitamin D3 [CALCIUM 600 + VIT D TABLET] 1 each PO DAILY 3. Herbals/Supplements -Info Only 1 ea PO DAILY 4. [place]-3 Fatty Acids [Fish Oil 1000 mg (*)] 2,000 mg PO DAILY 5. Rosuvastatin Calcium [Crestor 20mg (*)] 20 mg PO DAILY 6. Magnesium Oxide [Magnesium Oxide 400 mg (*)] 400 mg PO Q3D 7. Acetaminophen [Tylenol 325mg (*)] 325 - 650 mg PO Q4HRS PRN 8. Ferrous Sulfate [Ferrous Sulf 325 MG (*)] 325 mg PO DAILY 9. Furosemide [Lasix 40 MG (*)] 40 mg PO BID@0900,1500 10 Metoprolol Tartrate [Lopressor 25 mg (*)] 37.5 mg PO BID 11. Potassium Cl [Klor-Con 20 meq (*)] 40 meq PO BID 12. Sennosides/Docusate Sodium [Senokot-S] 1 - 2 tab PO BID 13. Warfarin Sodium 2 mg PO DAILY AT 6PM 14. oxyCODONE IR [Oxycodone Ir (*)] 5 mg PO Q4HRS PRN PENDING STUDIES/LABS 1. BMP and CXR - prior to surgical follow-up 2. INR as per arranged Coumadin clinic F/U APPOINTMENTS 1. Cristopher Loco - 06/16/16, 9:00 AM 2. Yoav Zapata - to be determined at surgical follow-up
[2016-06-09] MEDS: oxyCODONE IR 5 MG TAB PO PRN (15:59)
[2016-06-09] MEDS ORDERED: WARFARIN SODIUM 2 MG TAB PO ONE (16:00)
[2016-06-09] MEDS ORDERED: WARFARIN SODIUM 2.5 MG TAB PO ONE (16:00)
--- NOTE | 2016-06-12 12:36 | PQFORM ---
PHYSICIAN QUERY FORM Needs Your Response This query form is being sent to you to assure this patient record is coded properly. Please respond to the question below: DIPLOMATIC INTERPRETER QUESTION: Dear Dr. Loco, It is documented in Dr. Osullivan's Consult that the patient had the diagnosis of 'Acute respiratory failure.' Patient was intubated on June 04 for respiratory failure. Stated in SOAP progress note dated 06/05 'patient was re- intubated for agitation and acidosis.' After study, should the diagnosis of ' Acute respiratory failure' be included in the Discharge Summary? Yes x No Other more appropriate diagnosis Unable to determine Thank you MALIK Watson HIM/Coding Dept. [phone] INSTRUCTIONS FOR RESPONSE: Answer question by clicking on the "Edit Document" button. Move cursor to area below the stars. When complete, hit "Save." Click on the "Sign" button, then click "Sign" again. Type in your PIN and hit "Enter." MTDD
== END 2016-06-09 16:40 | disposition home or self-care (01) | DRG 219 ==
LOC: F2N 07:25 → F2W 06-05 12:55
PROVIDERS: ADMIT Thoracic Surgery (Cardiothoracic Vascular Surgery); ATTEND Thoracic Surgery (Cardiothoracic Vascular Surgery)
PROC: 02100Z9 Bypass Coronary Artery, One Artery from Left Internal Mammary, Open Approach (ICD-10-PCS; principal; 2016-06-04 08:45)
PROC: 02RG0JZ Replacement of Mitral Valve with Synthetic Substitute, Open Approach (ICD-10-PCS; principal; 2016-06-04 08:45)
PROC: 5A1221Z Performance of Cardiac Output, Continuous (ICD-10-PCS; principal; 2016-06-04 08:45)
PROC: 06BQ4ZZ Excision of Left Saphenous Vein, Percutaneous Endoscopic Approach (ICD-10-PCS; principal; 2016-06-04 08:45)
PROC: 02L70CK Occlusion of Left Atrial Appendage with Extraluminal Device, Open Approach (ICD-10-PCS; principal; 2016-06-04 08:45)
PROC: 021209W Bypass Coronary Artery, Three Arteries from Aorta with Autologous Venous Tissue, Open Approach (ICD-10-PCS; principal; 2016-06-04 08:45)
DX: I25.118 Atherosclerotic heart disease of native coronary artery with other forms of angina pectoris (principal); J96.00 Acute respiratory failure, unspecified whether with hypoxia or hypercapnia; I34.0 Nonrheumatic mitral (valve) insufficiency; E78.5 Hyperlipidemia, unspecified; I25.2 Old myocardial infarction; F41.9 Anxiety disorder, unspecified; I10 Essential (primary) hypertension; E78.00 Pure hypercholesterolemia, unspecified; Z95.5 Presence of coronary angioplasty implant and graft
CPT/HCPCS: 82947-QW; 97116-GP; 97163-GP; 97166-GO; 97530-GO; 97530-GP; 97535-GO; J0153; J0171; J0282; J0690; J1265; J1644; J1815; J1885; J2001; J2150; J2250; J2260; J2370; J2440; J2704; J2720; J2930; J3010; J7060; P9041

== ENCOUNTER → 2016-06-16 | Outpatient (CLI) | payer BC | LOC: FIMAGING 08:07 | PROVIDERS: ATTEND Physician Assistant | DX: Z48.812 Encounter for surgical aftercare following surgery on the circulatory system (principal); J90 Pleural effusion, not elsewhere classified ==